=== PATIENT | male | born 1990 | race Two or more races ===

== ENCOUNTER 2020-11-26 00:22 | Inpatient (IN) | payer OTHER ==
[~2020-11-26] VITALS: Ht 182.9 cm; Wt 61.0 kg
[2020-11-26 00:30] VITALS: BP 99/64
[2020-11-26] MEDS ORDERED: HYDROCODONE/ACETAMINOPHEN 10-325 MG TABLET PEG PRN (02:00)
[2020-11-26 04:27] VITALS: BP 93/54
[2020-11-26] MEDS: TraMADol HCL 50 MG TABLET PEG PRN (05:35)
[2020-11-26] MEDS ORDERED: ALBUTEROL SULFATE HFA 90 MCG/PUFF 8 GM INHALER IH PRN (07:15)
[2020-11-26] MEDS ORDERED: MAG HYDROX/AL HYDROX/SIMETH ES 30 ML SUSPENSION UDCUP PO PRN (07:15)
[2020-11-26] MEDS ORDERED: ONDANSETRON HCL 4 MG TABLET PO PRN (07:15)
[2020-11-26] MEDS ORDERED: LOPERAMIDE HCL 2 MG CAPSULE PO PRN (07:15)
[2020-11-26] MEDS ORDERED: PETROLATUM,WHITE 28 GM JELLY TP PRN (07:15)
[2020-11-26] MEDS ORDERED: CloNIDine HCL 0.1 MG TABLET PO PRN (07:15)
[2020-11-26] MEDS ORDERED: DOCUSATE SODIUM 100 MG CAPSULE PO PRN (07:15)
[2020-11-26] MEDS ORDERED: NICOTINE 14 MG/24 HOUR PATCH TD PRN (07:15)
[2020-11-26] MEDS ORDERED: ACETAMINOPHEN 325 MG TABLET PO PRN (07:15)
[2020-11-26] MEDS ORDERED: MAGNESIUM HYDROXIDE SUSPENSION 30 ML UDCUP PO PRN (07:15)
[2020-11-26] MEDS ORDERED: GuaiFENesin/D-METHORPHAN [SUGAR-FREE] 200-20MG/10 ML SYRUP UDCUP PO PRN (07:15)
[2020-11-26] MEDS ORDERED: CloNIDine HCL 0.1 MG TABLET PEG PRN (07:18)
[2020-11-26] MEDS ORDERED: GuaiFENesin/D-METHORPHAN [SUGAR-FREE] 200-20MG/10 ML SYRUP UDCUP PEG PRN (07:19)
[2020-11-26 07:27] VITALS: BP 96/57
[2020-11-26] MEDS ORDERED: ISONIAZID 300 MG TABLET PEG SCH (09:00)
[2020-11-26] MEDS ORDERED: FOLIC ACID 1 MG TABLET PEG SCH (09:00)
[2020-11-26] MEDS ORDERED: MULTIVITAMINS WITH MINERALS, THERAPEUTIC TABLET PEG SCH (09:00)
[2020-11-26] MEDS ORDERED: FAMOTIDINE 20 MG TABLET PEG SCH (09:00)
[2020-11-26] MEDS ORDERED: PYRAZINAMIDE 500 MG TABLET PEG SCH (09:00)
[2020-11-26] MEDS: RIFAMPIN 300 MG CAPSULE PO SCH (09:13)
[2020-11-26] MEDS: DOCUSATE SODIUM 100 MG/10 ML LIQUID UDCUP PEG SCH (09:13)
[2020-11-26] MEDS: MEGESTROL ACETATE 400 MG/10 ML SUSPENSION UDCUP PEG SCH ×2 (09:13→21:35)
[2020-11-26] MEDS: THIAMINE 100 MG TABLET PEG SCH (09:13)
[2020-11-26] MEDS: ETHAMBUTOL HCL 400 MG TABLET PEG SCH (09:14)
[2020-11-26] MEDS: CHOLECALCIFEROL (VIT D3) 1,000 UNITS [25 MCG] TABLET PEG SCH (09:14)
[2020-11-26] MEDS: PYRIDOXINE HCL 50 MG TABLET PEG SCH (09:14)
[2020-11-26] MEDS: ACETAMINOPHEN 325 MG TABLET PEG PRN ×2 (09:15→18:08)
[2020-11-26] MEDS: CYANOCOBALAMIN 500 MCG TABLET PEG SCH (09:16)
[2020-11-26] MEDS ORDERED: DIAZEPAM 10 MG TABLET PO PRN (10:30)
[2020-11-26] MEDS ORDERED: SODIUM CHLORIDE 3% 15 ML NEB SOLUTION NEB ONE (11:30)
[2020-11-26 15:47] LABS: BASOPHILS % (AUTO) 0.4 % (0.0-2.0); EOSINOPHILS % (AUTO) 2.8 % (1.0-6.0); HEMATOCRIT 27.1 % (41-53); HEMOGLOBIN 9.5 g/dL (13.5-17.5); LYMPHOCYTES # (AUTO) 0.8 K/uL (1.0-4.8); LYMPHOCYTES % (AUTO) 35.4 % (22.0-44.0); MEAN CORPUSCULAR HEMOGLOBIN 36.7 pg (26.0-34.0); MEAN CORPUSCULAR VOLUME 105 fL (80-100); MONOCYTES # (AUTO) 0.2 K/uL (0.1-1.0); MONOCYTES % (AUTO) 6.8 % (2.0-9.0); NEUTROPHILS # (AUTO) 1.3 K/uL (1.8-7.7); NEUTROPHILS % (AUTO) 54.6 % (40.0-70.0); RED BLOOD CELL COUNT(AUTO) 2.58 MIL/uL (4.50-5.90); RED CELL DISTRIBUTION WIDTH 14.3 % (11.5-14.5)
[2020-11-26] MEDS: HEPARIN SODIUM,PORCINE 5,000 UNITS/ML VIAL SQ SCH (16:00)
[2020-11-26 16:27] LABS: PLATELET COUNT (AUTO) 56 K/uL (150-450)
[2020-11-26 16:31] LABS: ALANINE AMINOTRANSFERASE 22 U/L (12-78); ALBUMIN 3.2 g/dL (3.4-5.0); ALKALINE PHOSPHATASE 89 U/L (46-116); ANION GAP 7 mmol/L (8-16); ASPARTATE AMINOTRANSFERASE 13 U/L (15-37); BILIRUBIN,TOTAL 0.2 mg/dL (0.1-1.0); CALCIUM, TOTAL 8.5 mg/dL (8.8-10.5); CARBON DIOXIDE 25 mmol/L (22-29); CHLORIDE 104 mmol/L (98-107); CREATININE 0.86 mg/dL (0.60-1.30); GLOMERULAR FILTR. RATE CALC > 60 mL/min (>60); GLUCOSE,RANDOM 123 mg/dL (70-110); PHOSPHORUS 3.6 mg/dL (2.5-4.9); SODIUM SERUM 136 mmol/L (136-145); TOTAL PROTEIN, SERUM 6.9 g/dL (6.4-8.2); UREA NITROGEN, BLOOD 16 mg/dL (7-18)
[2020-11-26 16:37] LABS: APPEARANCE,URINE CLEAR (CLEAR); BILIRUBIN,URINE NEGATIVE (NEGATIVE); GLUCOSE, URINE (UA) NEGATIVE (NEGATIVE); KETONES,URINE NEGATIVE (NEGATIVE); LEUKOCYTE ESTERASE ,URINE NEGATIVE (NEGATIVE); NITRATE,URINE NEGATIVE (NEGATIVE); OCCULT BLOOD,URINE NEGATIVE (NEGATIVE); PH,URINE 5.5 (5.0-8.0); PROTEIN,URINE NEGATIVE (NEGATIVE); UROBILINOGEN,URINE 0.2 mg/dL (<=1.0)
[2020-11-26 17:09] LABS: AMPHET/METH SCREEN,URINE NEGATIVE (NEGATIVE); BARBITURATE SCREEN, URINE NEGATIVE (NEGATIVE); BENZODIAZEPINES SCREEN,URINE NEGATIVE (NEGATIVE); COCAINE SCREEN,URINE NEGATIVE (NEGATIVE); METHADONE SCREEN, URINE NEGATIVE (NEGATIVE); OPIATE SCREEN,URINE POSITIVE (NEGATIVE)
[2020-11-26 17:10] LABS: PHENCYCLIDINE SCREEN,URINE NEGATIVE (NEGATIVE)
[2020-11-26 17:32] LABS: CANNABINOID SCREEN,URINE NEGATIVE (NEGATIVE)
[2020-11-26 19:46] VITALS: BP 93/59
[2020-11-26] MEDS: MIRTAZAPINE 15 MG TABLET PO SCH (21:35)
[2020-11-26 23:56] VITALS: BP 93/52
[2020-11-27 03:50] VITALS: BP 109/66
[2020-11-27 06:53] LABS: BASOPHILS % (AUTO) 0.3 % (0.0-2.0); EOSINOPHILS % (AUTO) 2.8 % (1.0-6.0); HEMATOCRIT 28.2 % (41-53); HEMOGLOBIN 9.9 g/dL (13.5-17.5); LYMPHOCYTES # (AUTO) 1.1 K/uL (1.0-4.8); LYMPHOCYTES % (AUTO) 46.2 % (22.0-44.0); MEAN CORPUSCULAR HEMOGLOBIN 36.8 pg (26.0-34.0); MEAN CORPUSCULAR HGB CONC 35.3 G/dL (31.0-37.0); MEAN CORPUSCULAR VOLUME 104 fL (80-100); MONOCYTES # (AUTO) 0.2 K/uL (0.1-1.0); MONOCYTES % (AUTO) 7.4 % (2.0-9.0); NEUTROPHILS % (AUTO) 43.3 % (40.0-70.0); PLATELET COUNT (AUTO) 65 K/uL (150-450); RED CELL DISTRIBUTION WIDTH 14.2 % (11.5-14.5)
[2020-11-27] MEDS ORDERED: DIAZEPAM 10 MG TABLET PO PRN (07:00)
[2020-11-27 07:24] LABS: ALANINE AMINOTRANSFERASE 23 U/L (12-78); ALBUMIN 3.3 g/dL (3.4-5.0); ALKALINE PHOSPHATASE 93 U/L (46-116); ANION GAP 7 mmol/L (8-16); ASPARTATE AMINOTRANSFERASE 16 U/L (15-37); BILIRUBIN,TOTAL 0.1 mg/dL (0.1-1.0); CALCIUM, TOTAL 8.9 mg/dL (8.8-10.5); CARBON DIOXIDE 27 mmol/L (22-29); CHLORIDE 105 mmol/L (98-107); CHOL/HDL RATIO 2.9 (4.2-7.3); CHOLESTEROL 168 mg/dL (131-200); GLOMERULAR FILTR. RATE CALC > 60 mL/min (>60); GLUCOSE,RANDOM 99 mg/dL (70-110); HDL CHOLESTEROL 58 mg/dL (40-60); LDL CHOL (CALC.) 100 mg/dL (0-130); POTASSIUM 3.7 mmol/L (3.5-5.1); SODIUM SERUM 139 mmol/L (136-145); TOTAL PROTEIN, SERUM 7.1 g/dL (6.4-8.2); TRIGLYCERIDES 48 mg/dL (15-150); UREA NITROGEN, BLOOD 17 mg/dL (7-18)
[2020-11-27 07:41] VITALS: BP 100/57
[2020-11-27 08:02] LABS: HEMOGLOBIN A1C 4.6 % (3.8-5.6)
[2020-11-27] MEDS: DOCUSATE SODIUM 100 MG/10 ML LIQUID UDCUP PEG SCH (08:40)
[2020-11-27] MEDS: MEGESTROL ACETATE 400 MG/10 ML SUSPENSION UDCUP PEG SCH ×2 (08:40→20:41)
[2020-11-27] MEDS: PYRAZINAMIDE 500 MG TABLET PEG SCH (08:41)
[2020-11-27] MEDS: ETHAMBUTOL HCL 400 MG TABLET PEG SCH (08:42)
[2020-11-27] MEDS: DIAZEPAM 10 MG TABLET PO SCH ×4 (08:43→20:41)
[2020-11-27] MEDS: PYRIDOXINE HCL 50 MG TABLET PEG SCH (08:44)
[2020-11-27] MEDS: CHOLECALCIFEROL (VIT D3) 1,000 UNITS [25 MCG] TABLET PEG SCH (08:45)
[2020-11-27] MEDS: MULTIVITAMINS WITH MINERALS, THERAPEUTIC TABLET PO SCH (08:45)
[2020-11-27] MEDS: THIAMINE 100 MG TABLET PEG SCH (08:45)
[2020-11-27] MEDS: CYANOCOBALAMIN 500 MCG TABLET PEG SCH (08:46)
[2020-11-27] MEDS: RIFAMPIN 300 MG CAPSULE PO SCH (08:46)
[2020-11-27] MEDS: HEPARIN SODIUM,PORCINE 5,000 UNITS/ML VIAL SQ SCH ×4 (08:46→23:44)
[2020-11-27] MEDS: TraMADol HCL 50 MG TABLET PEG PRN ×2 (08:47→15:11)
[2020-11-27] MEDS ORDERED: ISONIAZID 300 MG TABLET PEG SCH (09:00)
[2020-11-27 15:05] VITALS: BP 102/61
[2020-11-27 20:20] VITALS: BP 119/76
[2020-11-27] MEDS: MIRTAZAPINE 15 MG TABLET PO SCH (20:41)
[2020-11-27] MEDS: ACETAMINOPHEN 325 MG TABLET PEG PRN (20:50)
[2020-11-28 03:45] VITALS: BP 96/52
[2020-11-28] MEDS: TraMADol HCL 50 MG TABLET PEG PRN ×2 (04:12→12:12)
[2020-11-28 07:21] VITALS: BP 101/60
[2020-11-28] MEDS: HEPARIN SODIUM,PORCINE 5,000 UNITS/ML VIAL SQ SCH ×2 (08:31→15:01)
[2020-11-28] MEDS: CYANOCOBALAMIN 500 MCG TABLET PEG SCH (08:33)
[2020-11-28] MEDS: DIAZEPAM 10 MG TABLET PO SCH ×4 (08:33→20:18)
[2020-11-28] MEDS: THIAMINE 100 MG TABLET PEG SCH (08:33)
[2020-11-28] MEDS: ISONIAZID 300 MG TABLET PEG SCH (08:33)
[2020-11-28] MEDS: RIFAMPIN 300 MG CAPSULE PO SCH (08:33)
[2020-11-28] MEDS: MULTIVITAMINS WITH MINERALS, THERAPEUTIC TABLET PO SCH (08:33)
[2020-11-28] MEDS: MEGESTROL ACETATE 400 MG/10 ML SUSPENSION UDCUP PEG SCH ×2 (08:33→20:19)
[2020-11-28] MEDS: DOCUSATE SODIUM 100 MG/10 ML LIQUID UDCUP PEG SCH (08:33)
[2020-11-28] MEDS: PYRIDOXINE HCL 50 MG TABLET PEG SCH (08:34)
[2020-11-28] MEDS: PYRAZINAMIDE 500 MG TABLET PEG SCH (08:34)
[2020-11-28] MEDS: ETHAMBUTOL HCL 400 MG TABLET PEG SCH (08:34)
[2020-11-28] MEDS: CHOLECALCIFEROL (VIT D3) 1,000 UNITS [25 MCG] TABLET PEG SCH (08:34)
[2020-11-28 15:47] VITALS: BP 98/68
[2020-11-28 19:34] VITALS: BP 98/66
[2020-11-28] MEDS: MIRTAZAPINE 15 MG TABLET PO SCH (20:19)
[2020-11-28] MEDS: ACETAMINOPHEN 325 MG TABLET PEG PRN (20:26)
[2020-11-29] MEDS: HEPARIN SODIUM,PORCINE 5,000 UNITS/ML VIAL SQ SCH ×3 (01:01→15:48)
[2020-11-29] MEDS: TraMADol HCL 50 MG TABLET PEG PRN ×3 (01:06→21:26)
[2020-11-29 04:12] VITALS: BP 100/67
[2020-11-29] MEDS ORDERED: DIAZEPAM 5 MG TABLET PO PRN (07:00)
[2020-11-29 07:33] VITALS: BP 101/67
[2020-11-29] MEDS: DOCUSATE SODIUM 100 MG/10 ML LIQUID UDCUP PEG SCH (08:55)
[2020-11-29] MEDS: MEGESTROL ACETATE 400 MG/10 ML SUSPENSION UDCUP PEG SCH ×2 (08:55→20:32)
[2020-11-29] MEDS: CYANOCOBALAMIN 500 MCG TABLET PEG SCH (08:56)
[2020-11-29] MEDS: PYRAZINAMIDE 500 MG TABLET PEG SCH (08:56)
[2020-11-29] MEDS: ISONIAZID 300 MG TABLET PEG SCH (08:56)
[2020-11-29] MEDS: ETHAMBUTOL HCL 400 MG TABLET PEG SCH (08:56)
[2020-11-29] MEDS: RIFAMPIN 300 MG CAPSULE PO SCH (08:56)
[2020-11-29] MEDS: CHOLECALCIFEROL (VIT D3) 1,000 UNITS [25 MCG] TABLET PEG SCH (08:57)
[2020-11-29] MEDS: DIAZEPAM 5 MG TABLET PO SCH ×4 (08:57→21:28)
[2020-11-29] MEDS: PYRIDOXINE HCL 50 MG TABLET PEG SCH (08:57)
[2020-11-29] MEDS: THIAMINE 100 MG TABLET PEG SCH (08:57)
[2020-11-29] MEDS: MULTIVITAMINS WITH MINERALS, THERAPEUTIC TABLET PO SCH (08:57)
[2020-11-29 15:01] VITALS: BP 104/68
[2020-11-29 20:23] VITALS: BP_SYST 100; BP_SYST 97; BP_DIAS 61
[2020-11-29] MEDS: MIRTAZAPINE 15 MG TABLET PO SCH (20:32)
[2020-11-30] MEDS: HEPARIN SODIUM,PORCINE 5,000 UNITS/ML VIAL SQ SCH ×4 (00:06→23:55)
[2020-11-30 05:43] VITALS: BP 95/54
[2020-11-30] MEDS ORDERED: DIAZEPAM 5 MG TABLET PO PRN (07:00)
[2020-11-30 08:07] VITALS: BP 97/62
[2020-11-30] MEDS: CHOLECALCIFEROL (VIT D3) 1,000 UNITS [25 MCG] TABLET PEG SCH (08:38)
[2020-11-30] MEDS: RIFAMPIN 300 MG CAPSULE PO SCH (08:38)
[2020-11-30] MEDS: MEGESTROL ACETATE 400 MG/10 ML SUSPENSION UDCUP PEG SCH ×2 (08:38→21:21)
[2020-11-30] MEDS: PYRAZINAMIDE 500 MG TABLET PEG SCH (08:38)
[2020-11-30] MEDS: DOCUSATE SODIUM 100 MG/10 ML LIQUID UDCUP PEG SCH (08:39)
[2020-11-30] MEDS: ETHAMBUTOL HCL 400 MG TABLET PEG SCH (08:39)
[2020-11-30] MEDS: ISONIAZID 300 MG TABLET PEG SCH (08:40)
[2020-11-30] MEDS: MULTIVITAMINS WITH MINERALS, THERAPEUTIC TABLET PO SCH (08:45)
[2020-11-30] MEDS: THIAMINE 100 MG TABLET PEG SCH (08:45)
[2020-11-30] MEDS: CYANOCOBALAMIN 500 MCG TABLET PEG SCH (11:24)
[2020-11-30] MEDS: PYRIDOXINE HCL 50 MG TABLET PEG SCH (11:25)
[2020-11-30] MEDS: ACETAMINOPHEN 325 MG TABLET PEG PRN (11:25)
[2020-11-30] MEDS: TraMADol HCL 50 MG TABLET PEG PRN (16:59)
[2020-11-30 17:07] VITALS: BP 108/69
[2020-11-30 20:25] VITALS: BP 95/59
[2020-11-30] MEDS: MIRTAZAPINE 15 MG TABLET PO SCH (21:21)
[2020-12-01 05:47] VITALS: BP 102/60
[2020-12-01 07:53] VITALS: BP 100/55
[2020-12-01] MEDS: CHOLECALCIFEROL (VIT D3) 1,000 UNITS [25 MCG] TABLET PEG SCH (08:23)
[2020-12-01] MEDS: MULTIVITAMINS WITH MINERALS, THERAPEUTIC TABLET PO SCH (08:23)
[2020-12-01] MEDS: THIAMINE 100 MG TABLET PEG SCH (08:23)
[2020-12-01] MEDS: MEGESTROL ACETATE 400 MG/10 ML SUSPENSION UDCUP PEG SCH ×2 (08:23→21:03)
[2020-12-01] MEDS: DOCUSATE SODIUM 100 MG/10 ML LIQUID UDCUP PEG SCH (08:23)
[2020-12-01] MEDS: PYRIDOXINE HCL 50 MG TABLET PEG SCH (08:23)
[2020-12-01] MEDS: RIFAMPIN 300 MG CAPSULE PO SCH (08:24)
[2020-12-01] MEDS: HEPARIN SODIUM,PORCINE 5,000 UNITS/ML VIAL SQ SCH ×3 (08:24→23:10)
[2020-12-01] MEDS: PYRAZINAMIDE 500 MG TABLET PEG SCH (08:24)
[2020-12-01] MEDS: ISONIAZID 300 MG TABLET PEG SCH (08:24)
[2020-12-01] MEDS: ETHAMBUTOL HCL 400 MG TABLET PEG SCH (08:24)
[2020-12-01] MEDS: CYANOCOBALAMIN 500 MCG TABLET PEG SCH (08:24)
[2020-12-01] MEDS ORDERED: HALOPERIDOL DECANOATE 100 MG/ML VIAL IM ONE (12:00)
[2020-12-01] MEDS: TraMADol HCL 50 MG TABLET PEG PRN (13:31)
[2020-12-01] MEDS: ACETAMINOPHEN 325 MG TABLET PEG PRN ×2 (15:27→23:10)
[2020-12-01] MEDS: QUEtiapine FUMARATE 25 MG TABLET PEG PRN (15:58)
[2020-12-01] MEDS: MIRTAZAPINE 15 MG TABLET PO SCH (21:03)
[2020-12-01 21:10] VITALS: BP 103/72
[2020-12-02 08:27] VITALS: BP 102/64
[2020-12-02] MEDS: HEPARIN SODIUM,PORCINE 5,000 UNITS/ML VIAL SQ SCH ×2 (09:25→16:38)
[2020-12-02] MEDS: THIAMINE 100 MG TABLET PEG SCH (09:26)
[2020-12-02] MEDS: PYRAZINAMIDE 500 MG TABLET PEG SCH (09:27)
[2020-12-02] MEDS: PYRIDOXINE HCL 50 MG TABLET PEG SCH (09:27)
[2020-12-02] MEDS: MULTIVITAMINS WITH MINERALS, THERAPEUTIC TABLET PO SCH (09:27)
[2020-12-02] MEDS: ISONIAZID 300 MG TABLET PEG SCH (09:27)
[2020-12-02] MEDS: ETHAMBUTOL HCL 400 MG TABLET PEG SCH (09:28)
[2020-12-02] MEDS: DOCUSATE SODIUM 100 MG/10 ML LIQUID UDCUP PEG SCH (09:29)
[2020-12-02] MEDS: CHOLECALCIFEROL (VIT D3) 1,000 UNITS [25 MCG] TABLET PEG SCH (09:29)
[2020-12-02] MEDS: MEGESTROL ACETATE 400 MG/10 ML SUSPENSION UDCUP PEG SCH ×2 (09:29→21:26)
[2020-12-02] MEDS: RIFAMPIN 300 MG CAPSULE PO SCH (09:29)
[2020-12-02] MEDS: HALOPERIDOL DECANOATE 100 MG/ML VIAL IM ONE ×2 (12:45→13:24)
[2020-12-02] MEDS: CYANOCOBALAMIN 500 MCG TABLET PEG SCH (13:24)
[2020-12-02] MEDS: TraMADol HCL 50 MG TABLET PEG PRN (13:24)
[2020-12-02] MEDS: ACETAMINOPHEN 325 MG TABLET PEG PRN (19:50)
[2020-12-02 20:10] VITALS: BP 104/74
[2020-12-02] MEDS: MIRTAZAPINE 15 MG TABLET PO SCH (21:26)
[2020-12-03] MEDS: HEPARIN SODIUM,PORCINE 5,000 UNITS/ML VIAL SQ SCH ×3 (00:12→16:27)
[2020-12-03 04:18] VITALS: BP 98/61
[2020-12-03] MEDS: TraMADol HCL 50 MG TABLET PEG PRN ×3 (04:18→20:30)
[2020-12-03 07:41] LABS: BASOPHILS % (AUTO) 0.4 % (0.0-2.0); EOSINOPHILS % (AUTO) 2.6 % (1.0-6.0); HEMATOCRIT 29.3 % (41-53); LYMPHOCYTES % (AUTO) 39.5 % (22.0-44.0); MEAN CORPUSCULAR HEMOGLOBIN 37.1 pg (26.0-34.0); MEAN CORPUSCULAR HGB CONC 34.1 G/dL (31.0-37.0); MEAN CORPUSCULAR VOLUME 109 fL (80-100); MONOCYTES # (AUTO) 0.2 K/uL (0.1-1.0); MONOCYTES % (AUTO) 7.2 % (2.0-9.0); NEUTROPHILS # (AUTO) 1.3 K/uL (1.8-7.7); NEUTROPHILS % (AUTO) 50.3 % (40.0-70.0); RED BLOOD CELL COUNT(AUTO) 2.69 MIL/uL (4.50-5.90); RED CELL DISTRIBUTION WIDTH 15.5 % (11.5-14.5)
[2020-12-03 07:51] VITALS: BP 98/59
[2020-12-03] MEDS: PYRIDOXINE HCL 50 MG TABLET PEG SCH (08:07)
[2020-12-03] MEDS: DOCUSATE SODIUM 100 MG/10 ML LIQUID UDCUP PEG SCH (08:07)
[2020-12-03] MEDS: MEGESTROL ACETATE 400 MG/10 ML SUSPENSION UDCUP PEG SCH ×4 (08:07→21:00)
[2020-12-03] MEDS: RIFAMPIN 300 MG CAPSULE PO SCH (08:07)
[2020-12-03] MEDS: MULTIVITAMINS WITH MINERALS, THERAPEUTIC TABLET PO SCH (08:07)
[2020-12-03] MEDS: CYANOCOBALAMIN 500 MCG TABLET PEG SCH (08:07)
[2020-12-03] MEDS: CHOLECALCIFEROL (VIT D3) 1,000 UNITS [25 MCG] TABLET PEG SCH (08:07)
[2020-12-03] MEDS: ETHAMBUTOL HCL 400 MG TABLET PEG SCH (08:07)
[2020-12-03] MEDS: THIAMINE 100 MG TABLET PEG SCH (08:07)
[2020-12-03] MEDS: ISONIAZID 300 MG TABLET PEG SCH (08:07)
[2020-12-03] MEDS: PYRAZINAMIDE 500 MG TABLET PEG SCH (08:08)
[2020-12-03 08:18] LABS: ALANINE AMINOTRANSFERASE 73 U/L (12-78); ALBUMIN 3.4 g/dL (3.4-5.0); ALKALINE PHOSPHATASE 101 U/L (46-116); ANION GAP 12 mmol/L (8-16); ASPARTATE AMINOTRANSFERASE 54 U/L (15-37); BILIRUBIN,TOTAL 0.1 mg/dL (0.1-1.0); CALCIUM, TOTAL 9.2 mg/dL (8.8-10.5); CARBON DIOXIDE 23 mmol/L (22-29); CHLORIDE 105 mmol/L (98-107); GLUCOSE,RANDOM 86 mg/dL (70-110); POTASSIUM 3.9 mmol/L (3.5-5.1); SODIUM SERUM 140 mmol/L (136-145); TOTAL PROTEIN, SERUM 7.1 g/dL (6.4-8.2); UREA NITROGEN, BLOOD 18 mg/dL (7-18)
[2020-12-03 08:27] LABS: CREATININE 0.75 mg/dL (0.60-1.30); GLOMERULAR FILTR. RATE CALC > 60 mL/min (>60)
[2020-12-03 11:25] LABS: PLATELET COUNT (AUTO) 61 K/uL (150-450)
[2020-12-03] MEDS: QUEtiapine FUMARATE 25 MG TABLET PEG PRN ×3 (14:48→20:32)
[2020-12-03] MEDS: MIRTAZAPINE 15 MG TABLET PO SCH ×2 (19:42→20:30)
[2020-12-03 20:16] VITALS: BP 112/56
[2020-12-04 04:54] VITALS: BP 97/65
[2020-12-04] MEDS: ISONIAZID 300 MG TABLET PEG SCH ×2 (08:15→09:40)
[2020-12-04] MEDS: PYRAZINAMIDE 500 MG TABLET PEG SCH ×2 (08:15→09:41)
[2020-12-04] MEDS: ETHAMBUTOL HCL 400 MG TABLET PEG SCH ×2 (08:15→09:41)
[2020-12-04] MEDS: CYANOCOBALAMIN 500 MCG TABLET PEG SCH ×2 (08:15→09:42)
[2020-12-04] MEDS: DOCUSATE SODIUM 100 MG/10 ML LIQUID UDCUP PEG SCH ×2 (08:15→09:40)
[2020-12-04] MEDS: TraMADol HCL 50 MG TABLET PEG PRN ×3 (08:15→16:32)
[2020-12-04] MEDS: RIFAMPIN 300 MG CAPSULE PO SCH ×2 (08:15→09:42)
[2020-12-04] MEDS: MEGESTROL ACETATE 400 MG/10 ML SUSPENSION UDCUP PEG SCH ×3 (08:15→20:53)
[2020-12-04] MEDS: MULTIVITAMINS WITH MINERALS, THERAPEUTIC TABLET PO SCH ×2 (08:16→09:42)
[2020-12-04] MEDS: CHOLECALCIFEROL (VIT D3) 1,000 UNITS [25 MCG] TABLET PEG SCH ×2 (08:16→09:42)
[2020-12-04] MEDS: THIAMINE 100 MG TABLET PEG SCH ×2 (08:16→09:42)
[2020-12-04] MEDS: PYRIDOXINE HCL 50 MG TABLET PEG SCH ×2 (08:16→09:42)
[2020-12-04] MEDS: HEPARIN SODIUM,PORCINE 5,000 UNITS/ML VIAL SQ SCH ×4 (08:17→16:19)
[2020-12-04 08:19] VITALS: BP 89/49
[2020-12-04 20:30] VITALS: BP 101/64
[2020-12-04] MEDS: MIRTAZAPINE 15 MG TABLET PO SCH (20:53)
[2020-12-05] MEDS: QUEtiapine FUMARATE 25 MG TABLET PEG PRN ×3 (00:23→23:46)
[2020-12-05] MEDS: HEPARIN SODIUM,PORCINE 5,000 UNITS/ML VIAL SQ SCH ×4 (00:23→23:46)
[2020-12-05 05:05] VITALS: BP 103/63
[2020-12-05 07:57] VITALS: BP 97/66
[2020-12-05] MEDS: ETHAMBUTOL HCL 400 MG TABLET PEG SCH (08:01)
[2020-12-05] MEDS: CYANOCOBALAMIN 500 MCG TABLET PEG SCH (08:02)
[2020-12-05] MEDS: DOCUSATE SODIUM 100 MG/10 ML LIQUID UDCUP PEG SCH (08:02)
[2020-12-05] MEDS: MEGESTROL ACETATE 400 MG/10 ML SUSPENSION UDCUP PEG SCH ×2 (08:02→20:46)
[2020-12-05] MEDS: ISONIAZID 300 MG TABLET PEG SCH (08:02)
[2020-12-05] MEDS: RIFAMPIN 300 MG CAPSULE PO SCH (08:02)
[2020-12-05] MEDS: PYRAZINAMIDE 500 MG TABLET PEG SCH (08:02)
[2020-12-05] MEDS: THIAMINE 100 MG TABLET PEG SCH (08:03)
[2020-12-05] MEDS: PYRIDOXINE HCL 50 MG TABLET PEG SCH (08:03)
[2020-12-05] MEDS: CHOLECALCIFEROL (VIT D3) 1,000 UNITS [25 MCG] TABLET PEG SCH (08:03)
[2020-12-05] MEDS: MULTIVITAMINS WITH MINERALS, THERAPEUTIC TABLET PO SCH (08:03)
[2020-12-05 09:05] LABS: BASOPHILS % (AUTO) 0.4 % (0.0-2.0); EOSINOPHILS % (AUTO) 2.6 % (1.0-6.0); HEMATOCRIT 29.6 % (41-53); LYMPHOCYTES # (AUTO) 0.9 K/uL (1.0-4.8); LYMPHOCYTES % (AUTO) 35.1 % (22.0-44.0); MEAN CORPUSCULAR HEMOGLOBIN 36.9 pg (26.0-34.0); MEAN CORPUSCULAR HGB CONC 33.7 G/dL (31.0-37.0); MEAN CORPUSCULAR VOLUME 109 fL (80-100); MONOCYTES # (AUTO) 0.2 K/uL (0.1-1.0); MONOCYTES % (AUTO) 9.9 % (2.0-9.0); NEUTROPHILS # (AUTO) 1.3 K/uL (1.8-7.7); RED BLOOD CELL COUNT(AUTO) 2.71 MIL/uL (4.50-5.90); RED CELL DISTRIBUTION WIDTH 16.3 % (11.5-14.5)
[2020-12-05 09:18] LABS: ALANINE AMINOTRANSFERASE 152 U/L (12-78); ALBUMIN 3.4 g/dL (3.4-5.0); ALKALINE PHOSPHATASE 97 U/L (46-116); ANION GAP 14 mmol/L (8-16); ASPARTATE AMINOTRANSFERASE 99 U/L (15-37); BILIRUBIN,TOTAL 0.2 mg/dL (0.1-1.0); CALCIUM, TOTAL 9.1 mg/dL (8.8-10.5); CARBON DIOXIDE 22 mmol/L (22-29); CHLORIDE 103 mmol/L (98-107); CREATININE 0.65 mg/dL (0.60-1.30); GLOMERULAR FILTR. RATE CALC > 60 mL/min (>60); GLUCOSE,RANDOM 80 mg/dL (70-110); POTASSIUM 3.7 mmol/L (3.5-5.1); SODIUM SERUM 139 mmol/L (136-145); TOTAL PROTEIN, SERUM 7.2 g/dL (6.4-8.2); UREA NITROGEN, BLOOD 22 mg/dL (7-18)
[2020-12-05 10:03] LABS: PLATELET COUNT (AUTO) 63 K/uL (150-450)
[2020-12-05] MEDS: TraMADol HCL 50 MG TABLET PEG PRN ×2 (13:37→23:49)
[2020-12-05 19:50] VITALS: BP 106/71
[2020-12-05] MEDS: MIRTAZAPINE 15 MG TABLET PO SCH (20:46)
[2020-12-06 04:49] VITALS: BP 99/64
[2020-12-06 07:59] LABS: BASOPHILS % (AUTO) 0.3 % (0.0-2.0); EOSINOPHILS % (AUTO) 3.2 % (1.0-6.0); HEMATOCRIT 29.4 % (41-53); HEMOGLOBIN 10.1 g/dL (13.5-17.5); LYMPHOCYTES % (AUTO) 41.6 % (22.0-44.0); MEAN CORPUSCULAR HGB CONC 34.2 G/dL (31.0-37.0); MEAN CORPUSCULAR VOLUME 108 fL (80-100); MONOCYTES # (AUTO) 0.2 K/uL (0.1-1.0); MONOCYTES % (AUTO) 9.2 % (2.0-9.0); NEUTROPHILS # (AUTO) 1.1 K/uL (1.8-7.7); NEUTROPHILS % (AUTO) 45.7 % (40.0-70.0); PLATELET COUNT (AUTO) 60 K/uL (150-450); RED BLOOD CELL COUNT(AUTO) 2.72 MIL/uL (4.50-5.90); RED CELL DISTRIBUTION WIDTH 16.1 % (11.5-14.5)
[2020-12-06 08:35] LABS: ALANINE AMINOTRANSFERASE 167 U/L (12-78); ALBUMIN 3.5 g/dL (3.4-5.0); ALKALINE PHOSPHATASE 90 U/L (46-116); ANION GAP 12 mmol/L (8-16); ASPARTATE AMINOTRANSFERASE 86 U/L (15-37); BILIRUBIN,TOTAL 0.1 mg/dL (0.1-1.0); CALCIUM, TOTAL 9.2 mg/dL (8.8-10.5); CARBON DIOXIDE 23 mmol/L (22-29); CHLORIDE 103 mmol/L (98-107); CREATININE 0.74 mg/dL (0.60-1.30); GLOMERULAR FILTR. RATE CALC > 60 mL/min (>60); GLUCOSE,RANDOM 86 mg/dL (70-110); POTASSIUM 3.9 mmol/L (3.5-5.1); SODIUM SERUM 138 mmol/L (136-145); TOTAL PROTEIN, SERUM 7.5 g/dL (6.4-8.2); UREA NITROGEN, BLOOD 21 mg/dL (7-18)
[2020-12-06 08:41] VITALS: BP 101/57
[2020-12-06] MEDS: CYANOCOBALAMIN 500 MCG TABLET PEG SCH (09:17)
[2020-12-06] MEDS: THIAMINE 100 MG TABLET PEG SCH (09:17)
[2020-12-06] MEDS: ISONIAZID 300 MG TABLET PEG SCH (09:19)
[2020-12-06] MEDS: RIFAMPIN 300 MG CAPSULE PO SCH (09:19)
[2020-12-06] MEDS: PYRAZINAMIDE 500 MG TABLET PEG SCH (09:20)
[2020-12-06] MEDS: ETHAMBUTOL HCL 400 MG TABLET PEG SCH (09:20)
[2020-12-06] MEDS: MEGESTROL ACETATE 400 MG/10 ML SUSPENSION UDCUP PEG SCH ×2 (09:21→20:14)
[2020-12-06] MEDS: DOCUSATE SODIUM 100 MG/10 ML LIQUID UDCUP PEG SCH (09:21)
[2020-12-06] MEDS: HEPARIN SODIUM,PORCINE 5,000 UNITS/ML VIAL SQ SCH ×3 (09:21→23:25)
[2020-12-06] MEDS: PYRIDOXINE HCL 50 MG TABLET PEG SCH (09:22)
[2020-12-06] MEDS: CHOLECALCIFEROL (VIT D3) 1,000 UNITS [25 MCG] TABLET PEG SCH (09:22)
[2020-12-06] MEDS: TraMADol HCL 50 MG TABLET PEG PRN ×2 (09:23→20:14)
[2020-12-06] MEDS: MULTIVITAMINS WITH MINERALS, THERAPEUTIC TABLET PO SCH (09:52)
[2020-12-06] MEDS ORDERED: HALOPERIDOL DECANOATE 100 MG/ML VIAL IM ONE (17:00)
[2020-12-06] MEDS: QUEtiapine FUMARATE 25 MG TABLET PEG PRN (18:14)
[2020-12-06] MEDS: ACETAMINOPHEN 325 MG TABLET PEG PRN (18:15)
[2020-12-06] MEDS: MIRTAZAPINE 15 MG TABLET PO SCH (20:14)
[2020-12-06 20:28] VITALS: BP 107/66
[2020-12-07 04:55] VITALS: BP 96/54
[2020-12-07 06:51] LABS: BASOPHILS % (AUTO) 0.2 % (0.0-2.0); HEMATOCRIT 29.4 % (41-53); LYMPHOCYTES % (AUTO) 47.4 % (22.0-44.0); MEAN CORPUSCULAR HEMOGLOBIN 36.8 pg (26.0-34.0); MEAN CORPUSCULAR HGB CONC 34.2 G/dL (31.0-37.0); MEAN CORPUSCULAR VOLUME 108 fL (80-100); MONOCYTES # (AUTO) 0.2 K/uL (0.1-1.0); MONOCYTES % (AUTO) 9.9 % (2.0-9.0); NEUTROPHILS # (AUTO) 0.8 K/uL (1.8-7.7); NEUTROPHILS % (AUTO) 39.5 % (40.0-70.0); PLATELET COUNT (AUTO) 65 K/uL (150-450); RED BLOOD CELL COUNT(AUTO) 2.73 MIL/uL (4.50-5.90); RED CELL DISTRIBUTION WIDTH 15.1 % (11.5-14.5)
[2020-12-07 07:22] VITALS: BP 101/72
[2020-12-07 08:02] LABS: ALANINE AMINOTRANSFERASE 168 U/L (12-78); ALBUMIN 3.5 g/dL (3.4-5.0); ALKALINE PHOSPHATASE 93 U/L (46-116); ANION GAP 11 mmol/L (8-16); ASPARTATE AMINOTRANSFERASE 77 U/L (15-37); BILIRUBIN,TOTAL 0.1 mg/dL (0.1-1.0); CALCIUM, TOTAL 8.8 mg/dL (8.8-10.5); CARBON DIOXIDE 24 mmol/L (22-29); CHLORIDE 103 mmol/L (98-107); CREATININE 0.86 mg/dL (0.60-1.30); GLOMERULAR FILTR. RATE CALC > 60 mL/min (>60); GLUCOSE,RANDOM 97 mg/dL (70-110); POTASSIUM 3.9 mmol/L (3.5-5.1); SODIUM SERUM 138 mmol/L (136-145); TOTAL PROTEIN, SERUM 7.5 g/dL (6.4-8.2); UREA NITROGEN, BLOOD 23 mg/dL (7-18)
[2020-12-07] MEDS: PYRAZINAMIDE 500 MG TABLET PEG SCH (08:33)
[2020-12-07] MEDS: ETHAMBUTOL HCL 400 MG TABLET PEG SCH (08:34)
[2020-12-07] MEDS: CYANOCOBALAMIN 500 MCG TABLET PEG SCH (08:34)
[2020-12-07] MEDS: MULTIVITAMINS WITH MINERALS, THERAPEUTIC TABLET PO SCH (08:34)
[2020-12-07] MEDS: THIAMINE 100 MG TABLET PEG SCH (08:34)
[2020-12-07] MEDS: ISONIAZID 300 MG TABLET PEG SCH (08:34)
[2020-12-07] MEDS: RIFAMPIN 300 MG CAPSULE PO SCH (08:34)
[2020-12-07] MEDS: PYRIDOXINE HCL 50 MG TABLET PEG SCH (08:34)
[2020-12-07] MEDS: CHOLECALCIFEROL (VIT D3) 1,000 UNITS [25 MCG] TABLET PEG SCH (08:34)
[2020-12-07] MEDS: HEPARIN SODIUM,PORCINE 5,000 UNITS/ML VIAL SQ SCH ×3 (08:35→23:30)
[2020-12-07] MEDS: MEGESTROL ACETATE 400 MG/10 ML SUSPENSION UDCUP PEG SCH ×2 (08:35→20:26)
[2020-12-07] MEDS: DOCUSATE SODIUM 100 MG/10 ML LIQUID UDCUP PEG SCH (08:35)
[2020-12-07] MEDS: TraMADol HCL 50 MG TABLET PEG PRN ×2 (14:21→20:27)
[2020-12-07 19:00] VITALS: BP 102/72
[2020-12-07] MEDS: MIRTAZAPINE 15 MG TABLET PO SCH (20:26)
[2020-12-07] MEDS: QUEtiapine FUMARATE 25 MG TABLET PEG PRN (20:27)
[2020-12-08 07:01] LABS: BASOPHILS % (AUTO) 0.4 % (0.0-2.0); EOSINOPHILS % (AUTO) 3.3 % (1.0-6.0); HEMATOCRIT 30.4 % (41-53); HEMOGLOBIN 10.3 g/dL (13.5-17.5); LYMPHOCYTES # (AUTO) 1.1 K/uL (1.0-4.8); MEAN CORPUSCULAR HEMOGLOBIN 36.7 pg (26.0-34.0); MEAN CORPUSCULAR HGB CONC 33.7 G/dL (31.0-37.0); MEAN CORPUSCULAR VOLUME 109 fL (80-100); MONOCYTES # (AUTO) 0.2 K/uL (0.1-1.0); NEUTROPHILS % (AUTO) 40.3 % (40.0-70.0); PLATELET COUNT (AUTO) 64 K/uL (150-450); RED BLOOD CELL COUNT(AUTO) 2.79 MIL/uL (4.50-5.90); RED CELL DISTRIBUTION WIDTH 15.7 % (11.5-14.5)
[2020-12-08 08:02] LABS: ALANINE AMINOTRANSFERASE 157 U/L (12-78); ALBUMIN 3.6 g/dL (3.4-5.0); ALKALINE PHOSPHATASE 88 U/L (46-116); ANION GAP 12 mmol/L (8-16); ASPARTATE AMINOTRANSFERASE 63 U/L (15-37); BILIRUBIN,TOTAL 0.1 mg/dL (0.1-1.0); CALCIUM, TOTAL 9.3 mg/dL (8.8-10.5); CARBON DIOXIDE 23 mmol/L (22-29); CHLORIDE 102 mmol/L (98-107); CREATININE 0.91 mg/dL (0.60-1.30); GLOMERULAR FILTR. RATE CALC > 60 mL/min (>60); GLUCOSE,RANDOM 91 mg/dL (70-110); POTASSIUM 3.8 mmol/L (3.5-5.1); SODIUM SERUM 137 mmol/L (136-145); TOTAL PROTEIN, SERUM 7.4 g/dL (6.4-8.2); UREA NITROGEN, BLOOD 22 mg/dL (7-18)
[2020-12-08] MEDS: PYRAZINAMIDE 500 MG TABLET PEG SCH (08:04)
[2020-12-08] MEDS: PYRIDOXINE HCL 50 MG TABLET PEG SCH (08:04)
[2020-12-08] MEDS: MULTIVITAMINS WITH MINERALS, THERAPEUTIC TABLET PO SCH (08:04)
[2020-12-08] MEDS: ISONIAZID 300 MG TABLET PEG SCH (08:05)
[2020-12-08] MEDS: CHOLECALCIFEROL (VIT D3) 1,000 UNITS [25 MCG] TABLET PEG SCH (08:05)
[2020-12-08] MEDS: RIFAMPIN 300 MG CAPSULE PO SCH (08:05)
[2020-12-08] MEDS: MEGESTROL ACETATE 400 MG/10 ML SUSPENSION UDCUP PEG SCH ×2 (08:05→20:09)
[2020-12-08] MEDS: CYANOCOBALAMIN 500 MCG TABLET PEG SCH (08:05)
[2020-12-08] MEDS: THIAMINE 100 MG TABLET PEG SCH (08:05)
[2020-12-08] MEDS: DOCUSATE SODIUM 100 MG/10 ML LIQUID UDCUP PEG SCH (08:05)
[2020-12-08] MEDS: HEPARIN SODIUM,PORCINE 5,000 UNITS/ML VIAL SQ SCH ×2 (08:05→15:09)
[2020-12-08] MEDS: ETHAMBUTOL HCL 400 MG TABLET PEG SCH (08:06)
[2020-12-08 08:36] VITALS: BP 98/63
[2020-12-08] MEDS: TraMADol HCL 50 MG TABLET PEG PRN ×2 (15:08→20:18)
[2020-12-08] MEDS: MIRTAZAPINE 15 MG TABLET PO SCH (20:09)
[2020-12-08 20:36] VITALS: BP 102/56
[2020-12-09] MEDS: HEPARIN SODIUM,PORCINE 5,000 UNITS/ML VIAL SQ SCH ×3 (00:52→16:13)
[2020-12-09 04:00] VITALS: BP 103/65
[2020-12-09] MEDS: TraMADol HCL 50 MG TABLET PEG PRN ×3 (04:38→20:58)
[2020-12-09] MEDS: QUEtiapine FUMARATE 25 MG TABLET PEG PRN ×2 (04:41→20:58)
[2020-12-09 08:14] VITALS: BP 94/51
[2020-12-09] MEDS: MULTIVITAMINS WITH MINERALS, THERAPEUTIC TABLET PO SCH (09:23)
[2020-12-09] MEDS: CHOLECALCIFEROL (VIT D3) 1,000 UNITS [25 MCG] TABLET PEG SCH (09:23)
[2020-12-09] MEDS: THIAMINE 100 MG TABLET PEG SCH (09:23)
[2020-12-09] MEDS: PYRIDOXINE HCL 50 MG TABLET PEG SCH (09:23)
[2020-12-09] MEDS: PYRAZINAMIDE 500 MG TABLET PEG SCH (09:24)
[2020-12-09] MEDS: CYANOCOBALAMIN 500 MCG TABLET PEG SCH (09:24)
[2020-12-09] MEDS: RIFAMPIN 300 MG CAPSULE PO SCH (09:24)
[2020-12-09] MEDS: MEGESTROL ACETATE 400 MG/10 ML SUSPENSION UDCUP PEG SCH ×2 (09:25→20:58)
[2020-12-09] MEDS: ETHAMBUTOL HCL 400 MG TABLET PEG SCH (09:25)
[2020-12-09] MEDS: ISONIAZID 300 MG TABLET PEG SCH (09:25)
[2020-12-09] MEDS: DOCUSATE SODIUM 100 MG/10 ML LIQUID UDCUP PEG SCH (09:25)
[2020-12-09 11:12] LABS: BASOPHILS % (AUTO) 0.3 % (0.0-2.0); EOSINOPHILS % (AUTO) 3.7 % (1.0-6.0); HEMATOCRIT 29.8 % (41-53); HEMOGLOBIN 10.1 g/dL (13.5-17.5); LYMPHOCYTES # (AUTO) 0.9 K/uL (1.0-4.8); LYMPHOCYTES % (AUTO) 40.6 % (22.0-44.0); MEAN CORPUSCULAR HGB CONC 34.1 G/dL (31.0-37.0); MEAN CORPUSCULAR VOLUME 109 fL (80-100); MONOCYTES # (AUTO) 0.2 K/uL (0.1-1.0); MONOCYTES % (AUTO) 9.2 % (2.0-9.0); NEUTROPHILS # (AUTO) 1.1 K/uL (1.8-7.7); NEUTROPHILS % (AUTO) 46.2 % (40.0-70.0); PLATELET COUNT (AUTO) 66 K/uL (150-450); RED BLOOD CELL COUNT(AUTO) 2.74 MIL/uL (4.50-5.90); RED CELL DISTRIBUTION WIDTH 15.6 % (11.5-14.5)
[2020-12-09 11:33] LABS: ALANINE AMINOTRANSFERASE 137 U/L (12-78); ALBUMIN 3.5 g/dL (3.4-5.0); ALKALINE PHOSPHATASE 85 U/L (46-116); ANION GAP 13 mmol/L (8-16); ASPARTATE AMINOTRANSFERASE 46 U/L (15-37); BILIRUBIN,TOTAL 0.1 mg/dL (0.1-1.0); CALCIUM, TOTAL 8.9 mg/dL (8.8-10.5); CARBON DIOXIDE 22 mmol/L (22-29); CHLORIDE 102 mmol/L (98-107); CREATININE 0.81 mg/dL (0.60-1.30); GLOMERULAR FILTR. RATE CALC > 60 mL/min (>60); GLUCOSE,RANDOM 124 mg/dL (70-110); POTASSIUM 3.9 mmol/L (3.5-5.1); SODIUM SERUM 137 mmol/L (136-145); TOTAL PROTEIN, SERUM 7.4 g/dL (6.4-8.2); UREA NITROGEN, BLOOD 22 mg/dL (7-18)
[2020-12-09 20:46] VITALS: BP 97/61
[2020-12-09] MEDS: MIRTAZAPINE 15 MG TABLET PO SCH (20:58)
[2020-12-10] MEDS: HEPARIN SODIUM,PORCINE 5,000 UNITS/ML VIAL SQ SCH ×3 (00:55→16:16)
[2020-12-10 03:52] VITALS: BP 94/52
[2020-12-10 06:40] LABS: BASOPHILS % (AUTO) 0.3 % (0.0-2.0); EOSINOPHILS % (AUTO) 2.4 % (1.0-6.0); HEMATOCRIT 29.4 % (41-53); HEMOGLOBIN 10.3 g/dL (13.5-17.5); LYMPHOCYTES # (AUTO) 1.1 K/uL (1.0-4.8); LYMPHOCYTES % (AUTO) 41.6 % (22.0-44.0); MEAN CORPUSCULAR HEMOGLOBIN 37.6 pg (26.0-34.0); MEAN CORPUSCULAR VOLUME 107 fL (80-100); MONOCYTES # (AUTO) 0.2 K/uL (0.1-1.0); MONOCYTES % (AUTO) 9.1 % (2.0-9.0); NEUTROPHILS # (AUTO) 1.2 K/uL (1.8-7.7); NEUTROPHILS % (AUTO) 46.6 % (40.0-70.0); PLATELET COUNT (AUTO) 65 K/uL (150-450); RED BLOOD CELL COUNT(AUTO) 2.74 MIL/uL (4.50-5.90); RED CELL DISTRIBUTION WIDTH 15.6 % (11.5-14.5)
[2020-12-10 08:05] LABS: ALANINE AMINOTRANSFERASE 132 U/L (12-78); ALBUMIN 3.7 g/dL (3.4-5.0); ALKALINE PHOSPHATASE 87 U/L (46-116); ANION GAP 13 mmol/L (8-16); ASPARTATE AMINOTRANSFERASE 45 U/L (15-37); BILIRUBIN,TOTAL 0.2 mg/dL (0.1-1.0); CALCIUM, TOTAL 9.4 mg/dL (8.8-10.5); CARBON DIOXIDE 22 mmol/L (22-29); CHLORIDE 102 mmol/L (98-107); CREATININE 0.81 mg/dL (0.60-1.30); GLOMERULAR FILTR. RATE CALC > 60 mL/min (>60); GLUCOSE,RANDOM 97 mg/dL (70-110); POTASSIUM 3.8 mmol/L (3.5-5.1); SODIUM SERUM 137 mmol/L (136-145); TOTAL PROTEIN, SERUM 7.5 g/dL (6.4-8.2); UREA NITROGEN, BLOOD 22 mg/dL (7-18)
[2020-12-10] MEDS: TraMADol HCL 50 MG TABLET PEG PRN ×2 (08:29→20:15)
[2020-12-10] MEDS: ETHAMBUTOL HCL 400 MG TABLET PEG SCH (08:32)
[2020-12-10] MEDS: MEGESTROL ACETATE 400 MG/10 ML SUSPENSION UDCUP PEG SCH ×2 (08:32→20:14)
[2020-12-10] MEDS: CYANOCOBALAMIN 500 MCG TABLET PEG SCH (08:33)
[2020-12-10] MEDS: RIFAMPIN 300 MG CAPSULE PO SCH (08:33)
[2020-12-10] MEDS: DOCUSATE SODIUM 100 MG/10 ML LIQUID UDCUP PEG SCH (08:33)
[2020-12-10] MEDS: PYRAZINAMIDE 500 MG TABLET PEG SCH (08:33)
[2020-12-10] MEDS: THIAMINE 100 MG TABLET PEG SCH (08:34)
[2020-12-10] MEDS: PYRIDOXINE HCL 50 MG TABLET PEG SCH (08:34)
[2020-12-10] MEDS: ISONIAZID 300 MG TABLET PEG SCH (08:34)
[2020-12-10] MEDS: MULTIVITAMINS WITH MINERALS, THERAPEUTIC TABLET PO SCH (08:34)
[2020-12-10] MEDS: CHOLECALCIFEROL (VIT D3) 1,000 UNITS [25 MCG] TABLET PEG SCH (08:35)
[2020-12-10 09:02] VITALS: BP 94/65
[2020-12-10] MEDS: MIRTAZAPINE 15 MG TABLET PO SCH (20:15)
[2020-12-10 21:30] VITALS: BP 103/66
[2020-12-11] MEDS: HEPARIN SODIUM,PORCINE 5,000 UNITS/ML VIAL SQ SCH ×4 (00:20→23:45)
[2020-12-11 05:15] VITALS: BP 94/55
[2020-12-11 06:25] LABS: BASOPHILS % (AUTO) 0.3 % (0.0-2.0); EOSINOPHILS % (AUTO) 1.8 % (1.0-6.0); HEMATOCRIT 30.2 % (41-53); HEMOGLOBIN 10.3 g/dL (13.5-17.5); LYMPHOCYTES # (AUTO) 1.1 K/uL (1.0-4.8); LYMPHOCYTES % (AUTO) 43.5 % (22.0-44.0); MEAN CORPUSCULAR HGB CONC 34.2 G/dL (31.0-37.0); MEAN CORPUSCULAR VOLUME 108 fL (80-100); MONOCYTES # (AUTO) 0.2 K/uL (0.1-1.0); MONOCYTES % (AUTO) 8.4 % (2.0-9.0); NEUTROPHILS # (AUTO) 1.2 K/uL (1.8-7.7); PLATELET COUNT (AUTO) 65 K/uL (150-450); RED BLOOD CELL COUNT(AUTO) 2.79 MIL/uL (4.50-5.90); RED CELL DISTRIBUTION WIDTH 15.5 % (11.5-14.5)
[2020-12-11 06:55] LABS: ALANINE AMINOTRANSFERASE 120 U/L (12-78); ALBUMIN 3.6 g/dL (3.4-5.0); ALKALINE PHOSPHATASE 81 U/L (46-116); ANION GAP 9 mmol/L (8-16); ASPARTATE AMINOTRANSFERASE 33 U/L (15-37); BILIRUBIN,TOTAL 0.1 mg/dL (0.1-1.0); CALCIUM, TOTAL 9.3 mg/dL (8.8-10.5); CARBON DIOXIDE 24 mmol/L (22-29); CHLORIDE 103 mmol/L (98-107); CREATININE 0.82 mg/dL (0.60-1.30); GLOMERULAR FILTR. RATE CALC > 60 mL/min (>60); GLUCOSE,RANDOM 116 mg/dL (70-110); POTASSIUM 3.9 mmol/L (3.5-5.1); SODIUM SERUM 136 mmol/L (136-145); TOTAL PROTEIN, SERUM 7.5 g/dL (6.4-8.2); UREA NITROGEN, BLOOD 23 mg/dL (7-18)
[2020-12-11 08:29] VITALS: BP 96/62
[2020-12-11] MEDS: DOCUSATE SODIUM 100 MG/10 ML LIQUID UDCUP PEG SCH (08:40)
[2020-12-11] MEDS: PYRIDOXINE HCL 50 MG TABLET PEG SCH (08:40)
[2020-12-11] MEDS: RIFAMPIN 300 MG CAPSULE PO SCH (08:40)
[2020-12-11] MEDS: MEGESTROL ACETATE 400 MG/10 ML SUSPENSION UDCUP PEG SCH ×2 (08:40→20:32)
[2020-12-11] MEDS: PYRAZINAMIDE 500 MG TABLET PEG SCH (08:41)
[2020-12-11] MEDS: MULTIVITAMINS WITH MINERALS, THERAPEUTIC TABLET PO SCH (08:41)
[2020-12-11] MEDS: CHOLECALCIFEROL (VIT D3) 1,000 UNITS [25 MCG] TABLET PEG SCH (08:41)
[2020-12-11] MEDS: CYANOCOBALAMIN 500 MCG TABLET PEG SCH (08:41)
[2020-12-11] MEDS: ISONIAZID 300 MG TABLET PEG SCH (08:41)
[2020-12-11] MEDS: THIAMINE 100 MG TABLET PEG SCH (08:41)
[2020-12-11] MEDS: ETHAMBUTOL HCL 400 MG TABLET PEG SCH (08:41)
[2020-12-11] MEDS: TraMADol HCL 50 MG TABLET PEG PRN (12:00)
[2020-12-11 20:18] VITALS: BP 107/68
[2020-12-11] MEDS: MIRTAZAPINE 15 MG TABLET PO SCH (20:32)
[2020-12-11] MEDS: ACETAMINOPHEN 325 MG TABLET PEG PRN (20:32)
[2020-12-12] MEDS: TraMADol HCL 50 MG TABLET PEG PRN ×3 (00:07→21:40)
[2020-12-12 00:26] LABS: GLUCOMETER DEV NAME(LOC) 6N.1; GLUCOSE,POINT OF CARE 116 MG/DL (70-110)
[2020-12-12 04:35] VITALS: BP 99/64
[2020-12-12 06:43] LABS: BASOPHILS % (AUTO) 0.5 % (0.0-2.0); EOSINOPHILS % (AUTO) 2.4 % (1.0-6.0); HEMATOCRIT 29.8 % (41-53); HEMOGLOBIN 10.5 g/dL (13.5-17.5); LYMPHOCYTES # (AUTO) 1.1 K/uL (1.0-4.8); LYMPHOCYTES % (AUTO) 47.1 % (22.0-44.0); MEAN CORPUSCULAR HEMOGLOBIN 38.1 pg (26.0-34.0); MEAN CORPUSCULAR HGB CONC 35.3 G/dL (31.0-37.0); MEAN CORPUSCULAR VOLUME 108 fL (80-100); MONOCYTES # (AUTO) 0.2 K/uL (0.1-1.0); MONOCYTES % (AUTO) 10.1 % (2.0-9.0); NEUTROPHILS % (AUTO) 39.9 % (40.0-70.0); PLATELET COUNT (AUTO) 66 K/uL (150-450); RED BLOOD CELL COUNT(AUTO) 2.76 MIL/uL (4.50-5.90); RED CELL DISTRIBUTION WIDTH 15.4 % (11.5-14.5)
[2020-12-12 08:08] LABS: ALANINE AMINOTRANSFERASE 101 U/L (12-78); ALBUMIN 3.7 g/dL (3.4-5.0); ALKALINE PHOSPHATASE 85 U/L (46-116); ANION GAP 9 mmol/L (8-16); ASPARTATE AMINOTRANSFERASE 26 U/L (15-37); BILIRUBIN,TOTAL 0.1 mg/dL (0.1-1.0); CALCIUM, TOTAL 9.4 mg/dL (8.8-10.5); CARBON DIOXIDE 25 mmol/L (22-29); CHLORIDE 104 mmol/L (98-107); CREATININE 0.92 mg/dL (0.60-1.30); GLOMERULAR FILTR. RATE CALC > 60 mL/min (>60); GLUCOSE,RANDOM 89 mg/dL (70-110); POTASSIUM 3.9 mmol/L (3.5-5.1); SODIUM SERUM 138 mmol/L (136-145); TOTAL PROTEIN, SERUM 7.7 g/dL (6.4-8.2); UREA NITROGEN, BLOOD 24 mg/dL (7-18)
[2020-12-12 08:43] VITALS: BP 98/62
[2020-12-12] MEDS: DOCUSATE SODIUM 100 MG/10 ML LIQUID UDCUP PEG SCH (09:39)
[2020-12-12] MEDS: THIAMINE 100 MG TABLET PEG SCH (09:39)
[2020-12-12] MEDS: MEGESTROL ACETATE 400 MG/10 ML SUSPENSION UDCUP PEG SCH ×3 (09:39→20:51)
[2020-12-12] MEDS: MULTIVITAMINS WITH MINERALS, THERAPEUTIC TABLET PO SCH (09:39)
[2020-12-12] MEDS: CYANOCOBALAMIN 500 MCG TABLET PEG SCH (09:39)
[2020-12-12] MEDS: ISONIAZID 300 MG TABLET PEG SCH (09:39)
[2020-12-12] MEDS: CHOLECALCIFEROL (VIT D3) 1,000 UNITS [25 MCG] TABLET PEG SCH (09:39)
[2020-12-12] MEDS: PYRAZINAMIDE 500 MG TABLET PEG SCH (09:40)
[2020-12-12] MEDS: PYRIDOXINE HCL 50 MG TABLET PEG SCH (09:40)
[2020-12-12] MEDS: ETHAMBUTOL HCL 400 MG TABLET PEG SCH (09:40)
[2020-12-12] MEDS: RIFAMPIN 300 MG CAPSULE PO SCH (09:56)
[2020-12-12] MEDS: HEPARIN SODIUM,PORCINE 5,000 UNITS/ML VIAL SQ SCH ×3 (09:56→23:54)
[2020-12-12] MEDS: MIRTAZAPINE 15 MG TABLET PO SCH (20:46)
[2020-12-12 20:54] VITALS: BP 100/67
[2020-12-13 05:04] VITALS: BP 96/56
[2020-12-13 06:55] LABS: BASOPHILS % (AUTO) 0.3 % (0.0-2.0); EOSINOPHILS % (AUTO) 3.1 % (1.0-6.0); HEMATOCRIT 29.7 % (41-53); HEMOGLOBIN 10.4 g/dL (13.5-17.5); LYMPHOCYTES # (AUTO) 1.1 K/uL (1.0-4.8); LYMPHOCYTES % (AUTO) 43.1 % (22.0-44.0); MEAN CORPUSCULAR HEMOGLOBIN 37.5 pg (26.0-34.0); MEAN CORPUSCULAR HGB CONC 35.2 G/dL (31.0-37.0); MEAN CORPUSCULAR VOLUME 107 fL (80-100); MONOCYTES # (AUTO) 0.2 K/uL (0.1-1.0); MONOCYTES % (AUTO) 9.5 % (2.0-9.0); NEUTROPHILS # (AUTO) 1.1 K/uL (1.8-7.7); PLATELET COUNT (AUTO) 63 K/uL (150-450); RED BLOOD CELL COUNT(AUTO) 2.78 MIL/uL (4.50-5.90); RED CELL DISTRIBUTION WIDTH 15.7 % (11.5-14.5)
[2020-12-13 07:28] LABS: ALANINE AMINOTRANSFERASE 87 U/L (12-78); ALBUMIN 3.7 g/dL (3.4-5.0); ALKALINE PHOSPHATASE 86 U/L (46-116); ANION GAP 11 mmol/L (8-16); ASPARTATE AMINOTRANSFERASE 21 U/L (15-37); BILIRUBIN,TOTAL 0.1 mg/dL (0.1-1.0); CALCIUM, TOTAL 9.8 mg/dL (8.8-10.5); CARBON DIOXIDE 25 mmol/L (22-29); CHLORIDE 105 mmol/L (98-107); CREATININE 0.92 mg/dL (0.60-1.30); GLOMERULAR FILTR. RATE CALC > 60 mL/min (>60); GLUCOSE,RANDOM 91 mg/dL (70-110); POTASSIUM 4.1 mmol/L (3.5-5.1); SODIUM SERUM 141 mmol/L (136-145); TOTAL PROTEIN, SERUM 7.6 g/dL (6.4-8.2); UREA NITROGEN, BLOOD 25 mg/dL (7-18)
[2020-12-13 08:36] VITALS: BP 100/57
[2020-12-13] MEDS: HEPARIN SODIUM,PORCINE 5,000 UNITS/ML VIAL SQ SCH ×2 (09:32→16:23)
[2020-12-13] MEDS: CHOLECALCIFEROL (VIT D3) 1,000 UNITS [25 MCG] TABLET PEG SCH (09:33)
[2020-12-13] MEDS: PYRAZINAMIDE 500 MG TABLET PEG SCH (09:33)
[2020-12-13] MEDS: CYANOCOBALAMIN 500 MCG TABLET PEG SCH (09:33)
[2020-12-13] MEDS: RIFAMPIN 300 MG CAPSULE PO SCH (09:33)
[2020-12-13] MEDS: PYRIDOXINE HCL 50 MG TABLET PEG SCH (09:33)
[2020-12-13] MEDS: THIAMINE 100 MG TABLET PEG SCH (09:33)
[2020-12-13] MEDS: DOCUSATE SODIUM 100 MG/10 ML LIQUID UDCUP PEG SCH (09:34)
[2020-12-13] MEDS: MEGESTROL ACETATE 400 MG/10 ML SUSPENSION UDCUP PEG SCH ×2 (09:34→21:45)
[2020-12-13] MEDS: ISONIAZID 300 MG TABLET PEG SCH (09:34)
[2020-12-13] MEDS: ETHAMBUTOL HCL 400 MG TABLET PEG SCH (09:35)
[2020-12-13] MEDS: MULTIVITAMINS WITH MINERALS, THERAPEUTIC TABLET PO SCH (09:37)
[2020-12-13] MEDS: TraMADol HCL 50 MG TABLET PEG PRN (11:38)
[2020-12-13 20:10] VITALS: BP 91/58
[2020-12-13] MEDS: MIRTAZAPINE 15 MG TABLET PO SCH (21:45)
[2020-12-13] MEDS: ACETAMINOPHEN 325 MG TABLET PEG PRN (21:46)
[2020-12-14] MEDS: HEPARIN SODIUM,PORCINE 5,000 UNITS/ML VIAL SQ SCH ×2 (00:45→08:00)
[2020-12-14 04:42] VITALS: BP 100/68
[2020-12-14 07:04] LABS: BASOPHILS % (AUTO) 0.3 % (0.0-2.0); EOSINOPHILS % (AUTO) 2.3 % (1.0-6.0); HEMATOCRIT 30.3 % (41-53); HEMOGLOBIN 10.6 g/dL (13.5-17.5); LYMPHOCYTES % (AUTO) 40.9 % (22.0-44.0); MEAN CORPUSCULAR HEMOGLOBIN 37.2 pg (26.0-34.0); MEAN CORPUSCULAR VOLUME 107 fL (80-100); MONOCYTES # (AUTO) 0.2 K/uL (0.1-1.0); MONOCYTES % (AUTO) 9.9 % (2.0-9.0); NEUTROPHILS # (AUTO) 1.2 K/uL (1.8-7.7); NEUTROPHILS % (AUTO) 46.6 % (40.0-70.0); PLATELET COUNT (AUTO) 65 K/uL (150-450); RED BLOOD CELL COUNT(AUTO) 2.84 MIL/uL (4.50-5.90); RED CELL DISTRIBUTION WIDTH 15.2 % (11.5-14.5)
[2020-12-14 07:40] LABS: ALANINE AMINOTRANSFERASE 74 U/L (12-78); ALBUMIN 3.7 g/dL (3.4-5.0); ALKALINE PHOSPHATASE 85 U/L (46-116); ANION GAP 11 mmol/L (8-16); ASPARTATE AMINOTRANSFERASE 17 U/L (15-37); BILIRUBIN,TOTAL 0.2 mg/dL (0.1-1.0); CALCIUM, TOTAL 9.6 mg/dL (8.8-10.5); CARBON DIOXIDE 25 mmol/L (22-29); CHLORIDE 104 mmol/L (98-107); CREATININE 0.85 mg/dL (0.60-1.30); GLOMERULAR FILTR. RATE CALC > 60 mL/min (>60); GLUCOSE,RANDOM 92 mg/dL (70-110); POTASSIUM 3.8 mmol/L (3.5-5.1); SODIUM SERUM 140 mmol/L (136-145); TOTAL PROTEIN, SERUM 7.6 g/dL (6.4-8.2); UREA NITROGEN, BLOOD 25 mg/dL (7-18)
[2020-12-14 08:26] VITALS: BP 107/57
[2020-12-14] MEDS: ACETAMINOPHEN 325 MG TABLET PEG PRN (09:08)
[2020-12-14] MEDS: CYANOCOBALAMIN 500 MCG TABLET PEG SCH (09:08)
[2020-12-14] MEDS: DOCUSATE SODIUM 100 MG/10 ML LIQUID UDCUP PEG SCH (09:09)
[2020-12-14] MEDS: RIFAMPIN 300 MG CAPSULE PO SCH (09:09)
[2020-12-14] MEDS: ETHAMBUTOL HCL 400 MG TABLET PEG SCH (09:09)
[2020-12-14] MEDS: MEGESTROL ACETATE 400 MG/10 ML SUSPENSION UDCUP PEG SCH ×2 (09:11→21:22)
[2020-12-14] MEDS: PYRAZINAMIDE 500 MG TABLET PEG SCH (09:11)
[2020-12-14] MEDS: MULTIVITAMINS WITH MINERALS, THERAPEUTIC TABLET PO SCH (09:11)
[2020-12-14] MEDS: ISONIAZID 300 MG TABLET PEG SCH (09:12)
[2020-12-14] MEDS: THIAMINE 100 MG TABLET PEG SCH (09:13)
[2020-12-14] MEDS: PYRIDOXINE HCL 50 MG TABLET PEG SCH (09:13)
[2020-12-14] MEDS: CHOLECALCIFEROL (VIT D3) 1,000 UNITS [25 MCG] TABLET PEG SCH (09:14)
[2020-12-14] MEDS: TraMADol HCL 50 MG TABLET PEG PRN (20:09)
[2020-12-14 20:10] VITALS: BP 109/70
[2020-12-14] MEDS: MIRTAZAPINE 30 MG TABLET PO SCH (21:22)
[2020-12-15 06:48] LABS: BASOPHILS % (AUTO) 0.3 % (0.0-2.0); EOSINOPHILS % (AUTO) 2.4 % (1.0-6.0); HEMATOCRIT 30.1 % (41-53); HEMOGLOBIN 10.8 g/dL (13.5-17.5); LYMPHOCYTES % (AUTO) 39.3 % (22.0-44.0); MEAN CORPUSCULAR HEMOGLOBIN 37.9 pg (26.0-34.0); MEAN CORPUSCULAR HGB CONC 35.9 G/dL (31.0-37.0); MEAN CORPUSCULAR VOLUME 106 fL (80-100); MONOCYTES # (AUTO) 0.2 K/uL (0.1-1.0); MONOCYTES % (AUTO) 9.2 % (2.0-9.0); NEUTROPHILS # (AUTO) 1.3 K/uL (1.8-7.7); NEUTROPHILS % (AUTO) 48.8 % (40.0-70.0); PLATELET COUNT (AUTO) 63 K/uL (150-450); RED BLOOD CELL COUNT(AUTO) 2.85 MIL/uL (4.50-5.90); RED CELL DISTRIBUTION WIDTH 15.6 % (11.5-14.5)
[2020-12-15 08:02] LABS: ALANINE AMINOTRANSFERASE 64 U/L (12-78); ALBUMIN 3.8 g/dL (3.4-5.0); ALKALINE PHOSPHATASE 80 U/L (46-116); ANION GAP 10 mmol/L (8-16); ASPARTATE AMINOTRANSFERASE 15 U/L (15-37); BILIRUBIN,TOTAL 0.2 mg/dL (0.1-1.0); CALCIUM, TOTAL 9.6 mg/dL (8.8-10.5); CARBON DIOXIDE 25 mmol/L (22-29); CHLORIDE 106 mmol/L (98-107); CREATININE 0.88 mg/dL (0.60-1.30); GLOMERULAR FILTR. RATE CALC > 60 mL/min (>60); GLUCOSE,RANDOM 102 mg/dL (70-110); POTASSIUM 4.2 mmol/L (3.5-5.1); SODIUM SERUM 141 mmol/L (136-145); TOTAL PROTEIN, SERUM 7.8 g/dL (6.4-8.2); UREA NITROGEN, BLOOD 24 mg/dL (7-18)
[2020-12-15] MEDS: PYRAZINAMIDE 500 MG TABLET PEG SCH (08:09)
[2020-12-15] MEDS: ISONIAZID 300 MG TABLET PEG SCH (08:09)
[2020-12-15] MEDS: RIFAMPIN 300 MG CAPSULE PO SCH (08:10)
[2020-12-15] MEDS: CHOLECALCIFEROL (VIT D3) 1,000 UNITS [25 MCG] TABLET PEG SCH (08:10)
[2020-12-15] MEDS: MULTIVITAMINS WITH MINERALS, THERAPEUTIC TABLET PO SCH (08:10)
[2020-12-15] MEDS: PYRIDOXINE HCL 50 MG TABLET PEG SCH (08:10)
[2020-12-15] MEDS: CYANOCOBALAMIN 500 MCG TABLET PEG SCH (08:10)
[2020-12-15] MEDS: THIAMINE 100 MG TABLET PEG SCH (08:10)
[2020-12-15] MEDS: ETHAMBUTOL HCL 400 MG TABLET PEG SCH (08:11)
[2020-12-15] MEDS: DOCUSATE SODIUM 100 MG/10 ML LIQUID UDCUP PEG SCH (08:11)
[2020-12-15] MEDS: MEGESTROL ACETATE 400 MG/10 ML SUSPENSION UDCUP PEG SCH ×2 (08:11→20:27)
[2020-12-15] MEDS: ACETAMINOPHEN 325 MG TABLET PEG PRN (08:18)
[2020-12-15 09:15] VITALS: BP 106/66
[2020-12-15 19:49] VITALS: BP 97/57
[2020-12-15] MEDS: MIRTAZAPINE 30 MG TABLET PO SCH (20:27)
[2020-12-16 04:41] VITALS: BP 105/73
[2020-12-16] MEDS: ACETAMINOPHEN 325 MG TABLET PEG PRN ×2 (05:14→21:02)
[2020-12-16 06:45] LABS: BASOPHILS % (AUTO) 0.3 % (0.0-2.0); EOSINOPHILS % (AUTO) 2.8 % (1.0-6.0); HEMOGLOBIN 10.8 g/dL (13.5-17.5); LYMPHOCYTES # (AUTO) 1.1 K/uL (1.0-4.8); LYMPHOCYTES % (AUTO) 41.3 % (22.0-44.0); MEAN CORPUSCULAR HEMOGLOBIN 37.6 pg (26.0-34.0); MEAN CORPUSCULAR HGB CONC 35.9 G/dL (31.0-37.0); MEAN CORPUSCULAR VOLUME 105 fL (80-100); MONOCYTES # (AUTO) 0.2 K/uL (0.1-1.0); MONOCYTES % (AUTO) 7.5 % (2.0-9.0); NEUTROPHILS # (AUTO) 1.3 K/uL (1.8-7.7); NEUTROPHILS % (AUTO) 48.1 % (40.0-70.0); PLATELET COUNT (AUTO) 65 K/uL (150-450); RED BLOOD CELL COUNT(AUTO) 2.87 MIL/uL (4.50-5.90); RED CELL DISTRIBUTION WIDTH 15.3 % (11.5-14.5)
[2020-12-16 07:31] LABS: ALANINE AMINOTRANSFERASE 55 U/L (12-78); ALBUMIN 3.8 g/dL (3.4-5.0); ALKALINE PHOSPHATASE 89 U/L (46-116); ANION GAP 10 mmol/L (8-16); ASPARTATE AMINOTRANSFERASE 15 U/L (15-37); BILIRUBIN,TOTAL 0.2 mg/dL (0.1-1.0); CALCIUM, TOTAL 9.4 mg/dL (8.8-10.5); CARBON DIOXIDE 24 mmol/L (22-29); CHLORIDE 104 mmol/L (98-107); CREATININE 0.83 mg/dL (0.60-1.30); GLOMERULAR FILTR. RATE CALC > 60 mL/min (>60); GLUCOSE,RANDOM 99 mg/dL (70-110); POTASSIUM 3.9 mmol/L (3.5-5.1); SODIUM SERUM 138 mmol/L (136-145); TOTAL PROTEIN, SERUM 7.7 g/dL (6.4-8.2); UREA NITROGEN, BLOOD 25 mg/dL (7-18)
[2020-12-16 08:16] VITALS: BP 114/77
[2020-12-16] MEDS: PYRIDOXINE HCL 50 MG TABLET PEG SCH (09:00)
[2020-12-16] MEDS ORDERED: HALOPERIDOL DECANOATE 100 MG/ML VIAL IM SCH (09:00)
[2020-12-16] MEDS: CYANOCOBALAMIN 500 MCG TABLET PEG SCH (09:18)
[2020-12-16] MEDS: PYRAZINAMIDE 500 MG TABLET PEG SCH (09:18)
[2020-12-16] MEDS: CHOLECALCIFEROL (VIT D3) 1,000 UNITS [25 MCG] TABLET PEG SCH (09:19)
[2020-12-16] MEDS: MULTIVITAMINS WITH MINERALS, THERAPEUTIC TABLET PO SCH (09:19)
[2020-12-16] MEDS: THIAMINE 100 MG TABLET PEG SCH (09:19)
[2020-12-16] MEDS: MEGESTROL ACETATE 400 MG/10 ML SUSPENSION UDCUP PEG SCH ×2 (09:19→20:55)
[2020-12-16] MEDS: ETHAMBUTOL HCL 400 MG TABLET PEG SCH (09:19)
[2020-12-16] MEDS: ISONIAZID 300 MG TABLET PEG SCH (09:19)
[2020-12-16] MEDS: DOCUSATE SODIUM 100 MG/10 ML LIQUID UDCUP PEG SCH (09:19)
[2020-12-16] MEDS: RIFAMPIN 300 MG CAPSULE PO SCH (09:19)
[2020-12-16 18:37] LABS: COVID AG,FIA SOURCE NASOPHARYNGEAL
[2020-12-16 20:00] VITALS: BP_SYST 105; BP_SYST 115; BP_DIAS 58; BP_DIAS 65
[2020-12-16] MEDS: MIRTAZAPINE 30 MG TABLET PO SCH (20:55)
[2020-12-17 04:27] VITALS: BP 104/66
[2020-12-17] MEDS: TraMADol HCL 50 MG TABLET PEG PRN ×3 (06:11→20:22)
[2020-12-17 07:21] LABS: BASOPHILS % (AUTO) 0.4 % (0.0-2.0); EOSINOPHILS % (AUTO) 2.3 % (1.0-6.0); HEMATOCRIT 29.3 % (41-53); HEMOGLOBIN 10.3 g/dL (13.5-17.5); LYMPHOCYTES # (AUTO) 1.1 K/uL (1.0-4.8); LYMPHOCYTES % (AUTO) 44.2 % (22.0-44.0); MEAN CORPUSCULAR HEMOGLOBIN 37.2 pg (26.0-34.0); MEAN CORPUSCULAR HGB CONC 35.2 G/dL (31.0-37.0); MEAN CORPUSCULAR VOLUME 106 fL (80-100); MONOCYTES # (AUTO) 0.2 K/uL (0.1-1.0); MONOCYTES % (AUTO) 8.5 % (2.0-9.0); NEUTROPHILS # (AUTO) 1.1 K/uL (1.8-7.7); NEUTROPHILS % (AUTO) 44.6 % (40.0-70.0); PLATELET COUNT (AUTO) 58 K/uL (150-450); RED BLOOD CELL COUNT(AUTO) 2.78 MIL/uL (4.50-5.90); RED CELL DISTRIBUTION WIDTH 15.4 % (11.5-14.5)
[2020-12-17 07:56] LABS: ALANINE AMINOTRANSFERASE 45 U/L (12-78); ALBUMIN 3.7 g/dL (3.4-5.0); ALKALINE PHOSPHATASE 80 U/L (46-116); ANION GAP 11 mmol/L (8-16); ASPARTATE AMINOTRANSFERASE 13 U/L (15-37); BILIRUBIN,TOTAL 0.2 mg/dL (0.1-1.0); CALCIUM, TOTAL 9.4 mg/dL (8.8-10.5); CARBON DIOXIDE 23 mmol/L (22-29); CHLORIDE 104 mmol/L (98-107); CREATININE 0.64 mg/dL (0.60-1.30); GLOMERULAR FILTR. RATE CALC > 60 mL/min (>60); GLUCOSE,RANDOM 90 mg/dL (70-110); POTASSIUM 3.7 mmol/L (3.5-5.1); SODIUM SERUM 138 mmol/L (136-145); TOTAL PROTEIN, SERUM 7.4 g/dL (6.4-8.2); UREA NITROGEN, BLOOD 23 mg/dL (7-18)
[2020-12-17 08:26] VITALS: BP 102/64
[2020-12-17] MEDS: RIFAMPIN 300 MG CAPSULE PO SCH (08:45)
[2020-12-17] MEDS: PYRAZINAMIDE 500 MG TABLET PEG SCH (08:45)
[2020-12-17] MEDS: PYRIDOXINE HCL 50 MG TABLET PEG SCH (08:46)
[2020-12-17] MEDS: CYANOCOBALAMIN 500 MCG TABLET PEG SCH (08:46)
[2020-12-17] MEDS: MEGESTROL ACETATE 400 MG/10 ML SUSPENSION UDCUP PEG SCH ×2 (08:46→20:21)
[2020-12-17] MEDS: ISONIAZID 300 MG TABLET PEG SCH (08:46)
[2020-12-17] MEDS: THIAMINE 100 MG TABLET PEG SCH (08:46)
[2020-12-17] MEDS: DOCUSATE SODIUM 100 MG/10 ML LIQUID UDCUP PEG SCH (08:46)
[2020-12-17] MEDS: CHOLECALCIFEROL (VIT D3) 1,000 UNITS [25 MCG] TABLET PEG SCH (08:46)
[2020-12-17] MEDS: ETHAMBUTOL HCL 400 MG TABLET PEG SCH (08:48)
[2020-12-17] MEDS: MULTIVITAMINS WITH MINERALS, THERAPEUTIC TABLET PO SCH (09:00)
[2020-12-17] MEDS: MIRTAZAPINE 30 MG TABLET PO SCH (20:21)
[2020-12-17 20:35] VITALS: BP 93/65
[2020-12-18 05:06] VITALS: BP 100/59
[2020-12-18 07:31] LABS: BASOPHILS % (AUTO) 0.2 % (0.0-2.0); EOSINOPHILS % (AUTO) 2.2 % (1.0-6.0); HEMATOCRIT 30.4 % (41-53); HEMOGLOBIN 10.7 g/dL (13.5-17.5); LYMPHOCYTES # (AUTO) 1.3 K/uL (1.0-4.8); LYMPHOCYTES % (AUTO) 41.5 % (22.0-44.0); MEAN CORPUSCULAR HEMOGLOBIN 37.8 pg (26.0-34.0); MEAN CORPUSCULAR HGB CONC 35.4 G/dL (31.0-37.0); MEAN CORPUSCULAR VOLUME 107 fL (80-100); MONOCYTES # (AUTO) 0.2 K/uL (0.1-1.0); MONOCYTES % (AUTO) 7.5 % (2.0-9.0); NEUTROPHILS # (AUTO) 1.5 K/uL (1.8-7.7); NEUTROPHILS % (AUTO) 48.6 % (40.0-70.0); RED BLOOD CELL COUNT(AUTO) 2.85 MIL/uL (4.50-5.90); RED CELL DISTRIBUTION WIDTH 15.4 % (11.5-14.5)
[2020-12-18 07:41] VITALS: BP 102/59
[2020-12-18 07:49] LABS: ALANINE AMINOTRANSFERASE 39 U/L (12-78); ALBUMIN 3.7 g/dL (3.4-5.0); ALKALINE PHOSPHATASE 77 U/L (46-116); ANION GAP 7 mmol/L (8-16); ASPARTATE AMINOTRANSFERASE 12 U/L (15-37); BILIRUBIN,TOTAL 0.2 mg/dL (0.1-1.0); CALCIUM, TOTAL 9.5 mg/dL (8.8-10.5); CARBON DIOXIDE 26 mmol/L (22-29); CHLORIDE 103 mmol/L (98-107); CREATININE 0.95 mg/dL (0.60-1.30); GLOMERULAR FILTR. RATE CALC > 60 mL/min (>60); GLUCOSE,RANDOM 82 mg/dL (70-110); POTASSIUM 3.9 mmol/L (3.5-5.1); SODIUM SERUM 136 mmol/L (136-145); TOTAL PROTEIN, SERUM 7.3 g/dL (6.4-8.2); UREA NITROGEN, BLOOD 24 mg/dL (7-18)
[2020-12-18 08:31] LABS: PLATELET COUNT (AUTO) 57 K/uL (150-450)
[2020-12-18] MEDS: PYRIDOXINE HCL 50 MG TABLET PEG SCH (08:59)
[2020-12-18] MEDS: CYANOCOBALAMIN 500 MCG TABLET PEG SCH (08:59)
[2020-12-18] MEDS: THIAMINE 100 MG TABLET PEG SCH (09:00)
[2020-12-18] MEDS: MULTIVITAMINS WITH MINERALS, THERAPEUTIC TABLET PO SCH (09:00)
[2020-12-18] MEDS: CHOLECALCIFEROL (VIT D3) 1,000 UNITS [25 MCG] TABLET PEG SCH (09:00)
[2020-12-18] MEDS: TraMADol HCL 50 MG TABLET PEG PRN ×2 (09:00→20:47)
[2020-12-18] MEDS: RIFAMPIN 300 MG CAPSULE PO SCH (09:01)
[2020-12-18] MEDS: DOCUSATE SODIUM 100 MG/10 ML LIQUID UDCUP PEG SCH (09:01)
[2020-12-18] MEDS: ETHAMBUTOL HCL 400 MG TABLET PEG SCH (09:01)
[2020-12-18] MEDS: MEGESTROL ACETATE 400 MG/10 ML SUSPENSION UDCUP PEG SCH ×2 (09:01→20:47)
[2020-12-18] MEDS: ISONIAZID 300 MG TABLET PEG SCH (09:01)
[2020-12-18] MEDS: PYRAZINAMIDE 500 MG TABLET PEG SCH (09:01)
[2020-12-18 20:32] VITALS: BP 98/64
[2020-12-18] MEDS: MIRTAZAPINE 30 MG TABLET PO SCH (20:47)
[2020-12-19 00:25] VITALS: BP 98/64
[2020-12-19 05:45] VITALS: BP 97/64
[2020-12-19] MEDS: MULTIVITAMINS WITH MINERALS, THERAPEUTIC TABLET PO SCH (08:04)
[2020-12-19] MEDS: CHOLECALCIFEROL (VIT D3) 1,000 UNITS [25 MCG] TABLET PEG SCH (08:04)
[2020-12-19] MEDS: THIAMINE 100 MG TABLET PEG SCH (08:04)
[2020-12-19] MEDS: PYRIDOXINE HCL 50 MG TABLET PEG SCH (08:05)
[2020-12-19] MEDS: ETHAMBUTOL HCL 400 MG TABLET PEG SCH (08:05)
[2020-12-19] MEDS: PYRAZINAMIDE 500 MG TABLET PEG SCH (08:05)
[2020-12-19] MEDS: CYANOCOBALAMIN 500 MCG TABLET PEG SCH (08:05)
[2020-12-19] MEDS: MEGESTROL ACETATE 400 MG/10 ML SUSPENSION UDCUP PEG SCH ×2 (08:05→20:05)
[2020-12-19] MEDS: ISONIAZID 300 MG TABLET PEG SCH (08:05)
[2020-12-19] MEDS: RIFAMPIN 300 MG CAPSULE PO SCH (08:05)
[2020-12-19] MEDS: DOCUSATE SODIUM 100 MG/10 ML LIQUID UDCUP PEG SCH (08:06)
[2020-12-19 08:24] VITALS: BP 129/76
[2020-12-19] MEDS: MIRTAZAPINE 30 MG TABLET PO SCH (20:05)
[2020-12-19] MEDS: TraMADol HCL 50 MG TABLET PEG PRN (20:18)
[2020-12-19 20:22] VITALS: BP 102/67
[2020-12-20 04:46] VITALS: BP 99/62
[2020-12-20 07:24] VITALS: BP 102/57
[2020-12-20] MEDS: THIAMINE 100 MG TABLET PEG SCH (08:09)
[2020-12-20] MEDS: MULTIVITAMINS WITH MINERALS, THERAPEUTIC TABLET PO SCH (08:09)
[2020-12-20] MEDS: PYRAZINAMIDE 500 MG TABLET PEG SCH (08:09)
[2020-12-20] MEDS: PYRIDOXINE HCL 50 MG TABLET PEG SCH (08:09)
[2020-12-20] MEDS: CYANOCOBALAMIN 500 MCG TABLET PEG SCH (08:09)
[2020-12-20] MEDS: TraMADol HCL 50 MG TABLET PEG PRN ×2 (08:09→18:43)
[2020-12-20] MEDS: ISONIAZID 300 MG TABLET PEG SCH (08:10)
[2020-12-20] MEDS: CHOLECALCIFEROL (VIT D3) 1,000 UNITS [25 MCG] TABLET PEG SCH (08:10)
[2020-12-20] MEDS: ETHAMBUTOL HCL 400 MG TABLET PEG SCH (08:10)
[2020-12-20] MEDS: MEGESTROL ACETATE 400 MG/10 ML SUSPENSION UDCUP PEG SCH ×2 (08:10→20:07)
[2020-12-20] MEDS: DOCUSATE SODIUM 100 MG/10 ML LIQUID UDCUP PEG SCH (08:10)
[2020-12-20] MEDS: RIFAMPIN 300 MG CAPSULE PO SCH (08:10)
[2020-12-20] MEDS: MIRTAZAPINE 30 MG TABLET PO SCH (20:06)
[2020-12-20] MEDS: QUEtiapine FUMARATE 25 MG TABLET PEG PRN (20:09)
[2020-12-20 20:23] VITALS: BP 96/54
[2020-12-21 07:43] VITALS: BP 116/64
[2020-12-21] MEDS: CHOLECALCIFEROL (VIT D3) 1,000 UNITS [25 MCG] TABLET PEG SCH (07:59)
[2020-12-21] MEDS: THIAMINE 100 MG TABLET PEG SCH (07:59)
[2020-12-21] MEDS: PYRIDOXINE HCL 50 MG TABLET PEG SCH (07:59)
[2020-12-21] MEDS: MULTIVITAMINS WITH MINERALS, THERAPEUTIC TABLET PO SCH (07:59)
[2020-12-21] MEDS: TraMADol HCL 50 MG TABLET PEG PRN ×2 (07:59→20:34)
[2020-12-21] MEDS: RIFAMPIN 300 MG CAPSULE PO SCH (07:59)
[2020-12-21] MEDS: CYANOCOBALAMIN 500 MCG TABLET PEG SCH (08:00)
[2020-12-21] MEDS: ETHAMBUTOL HCL 400 MG TABLET PEG SCH (08:00)
[2020-12-21] MEDS: DOCUSATE SODIUM 100 MG/10 ML LIQUID UDCUP PEG SCH (08:00)
[2020-12-21] MEDS: PYRAZINAMIDE 500 MG TABLET PEG SCH (08:00)
[2020-12-21] MEDS: MEGESTROL ACETATE 400 MG/10 ML SUSPENSION UDCUP PEG SCH ×2 (08:00→20:24)
[2020-12-21] MEDS: ISONIAZID 300 MG TABLET PEG SCH (08:00)
[2020-12-21 20:00] VITALS: BP 101/67
[2020-12-21] MEDS: MIRTAZAPINE 30 MG TABLET PO SCH (20:22)
[2020-12-22 04:50] VITALS: BP 98/64
[2020-12-22 05:50] VITALS: BP 98/64
[2020-12-22 08:00] VITALS: BP 104/59
[2020-12-22] MEDS: ISONIAZID 300 MG TABLET PEG SCH (08:13)
[2020-12-22] MEDS: TraMADol HCL 50 MG TABLET PEG PRN ×2 (08:13→20:38)
[2020-12-22] MEDS: MULTIVITAMINS WITH MINERALS, THERAPEUTIC TABLET PO SCH (08:14)
[2020-12-22] MEDS: DOCUSATE SODIUM 100 MG/10 ML LIQUID UDCUP PEG SCH (08:14)
[2020-12-22] MEDS: RIFAMPIN 300 MG CAPSULE PO SCH (08:14)
[2020-12-22] MEDS: PYRIDOXINE HCL 50 MG TABLET PEG SCH (08:14)
[2020-12-22] MEDS: THIAMINE 100 MG TABLET PEG SCH (08:14)
[2020-12-22] MEDS: ETHAMBUTOL HCL 400 MG TABLET PEG SCH (08:14)
[2020-12-22] MEDS: PYRAZINAMIDE 500 MG TABLET PEG SCH (08:14)
[2020-12-22] MEDS: CYANOCOBALAMIN 500 MCG TABLET PEG SCH (08:14)
[2020-12-22] MEDS: CHOLECALCIFEROL (VIT D3) 1,000 UNITS [25 MCG] TABLET PEG SCH (08:14)
[2020-12-22] MEDS: MEGESTROL ACETATE 400 MG/10 ML SUSPENSION UDCUP PEG SCH ×2 (08:14→20:27)
[2020-12-22] MEDS ORDERED: MEGE40L PEG (14:21)
[2020-12-22] MEDS ORDERED: CYAN500T9 PEG (14:21)
[2020-12-22] MEDS ORDERED: ETHA100 PEG (14:22)
[2020-12-22] MEDS ORDERED: ISON300 PEG (14:24)
[2020-12-22] MEDS ORDERED: PYRA500 PEG (14:24)
[2020-12-22] MEDS ORDERED: THIA100T80 PEG (14:28)
[2020-12-22] MEDS ORDERED: RIFA300 PEG (14:29)
[2020-12-22] MEDS ORDERED: MULT-1203 PEG (14:30)
[2020-12-22] MEDS ORDERED: PYRI50 PEG (14:31)
[2020-12-22] MEDS ORDERED: MIRT30 PEG (14:32)
[2020-12-22] MEDS ORDERED: BISA10SU11 PR (14:36)
[2020-12-22] MEDS ORDERED: DOCU-275 PO (14:37)
[2020-12-22] MEDS ORDERED: CHOL100018 PEG (14:48)
[2020-12-22] MEDS ORDERED: CLON-598 PO (14:49)
[2020-12-22] MEDS ORDERED: HALO100V4 IM (14:50)
[2020-12-22] MEDS ORDERED: TRAM50TA4 PO (14:59)
[2020-12-22] MEDS ORDERED: DSSL PEG (15:01)
[2020-12-22 19:53] VITALS: BP 119/55
[2020-12-22] MEDS: MIRTAZAPINE 30 MG TABLET PO SCH (20:28)
[2020-12-22] MEDS: BISACODYL 10 MG RECTAL RECTAL SUPPOSITORY PR SCH (20:28)
[2020-12-23 04:09] VITALS: BP 94/54
[2020-12-23] MEDS: ETHAMBUTOL HCL 400 MG TABLET PEG SCH (08:26)
[2020-12-23] MEDS: CHOLECALCIFEROL (VIT D3) 1,000 UNITS [25 MCG] TABLET PEG SCH (08:26)
[2020-12-23] MEDS: RIFAMPIN 300 MG CAPSULE PO SCH (08:26)
[2020-12-23] MEDS: MEGESTROL ACETATE 400 MG/10 ML SUSPENSION UDCUP PEG SCH ×2 (08:26→20:21)
[2020-12-23] MEDS: CYANOCOBALAMIN 500 MCG TABLET PEG SCH (08:26)
[2020-12-23] MEDS: PYRIDOXINE HCL 50 MG TABLET PEG SCH (08:26)
[2020-12-23] MEDS: ISONIAZID 300 MG TABLET PEG SCH (08:26)
[2020-12-23] MEDS: PYRAZINAMIDE 500 MG TABLET PEG SCH (08:26)
[2020-12-23] MEDS: THIAMINE 100 MG TABLET PEG SCH (08:26)
[2020-12-23] MEDS: DOCUSATE SODIUM 100 MG/10 ML LIQUID UDCUP PEG SCH (08:26)
[2020-12-23] MEDS: MULTIVITAMINS WITH MINERALS, THERAPEUTIC TABLET PO SCH (08:26)
[2020-12-23] MEDS: BISACODYL 10 MG RECTAL RECTAL SUPPOSITORY PR SCH ×3 (08:27→20:21)
[2020-12-23] MEDS: TraMADol HCL 50 MG TABLET PEG PRN ×2 (08:46→20:21)
[2020-12-23 09:01] VITALS: BP 109/79
[2020-12-23] MEDS: MIRTAZAPINE 30 MG TABLET PO SCH (20:21)
[2020-12-23 20:30] VITALS: BP 106/77
[2020-12-24 04:12] VITALS: BP 96/64
== END 2020-12-24 06:44 | DRG 177 ==
LOC: 6S 00:22
PROVIDERS: ADMIT Internal Medicine; ATTEND Internal Medicine
DX: A15.0 Tuberculosis of lung (principal); E43 Unspecified severe protein-calorie malnutrition; Z68.1 Body mass index [BMI] 19.9 or less, adult; A18.01 Tuberculosis of spine; F33.2 Major depressive disorder, recurrent severe without psychotic features; D61.818 Other pancytopenia; C94.6 Myelodysplastic disease, not elsewhere classified; R62.7 Adult failure to thrive; Z88.8 Allergy status to other drugs, medicaments and biological substances; Z93.1 Gastrostomy status; D69.6 Thrombocytopenia, unspecified; F41.9 Anxiety disorder, unspecified; K59.00 Constipation, unspecified; M48.07 Spinal stenosis, lumbosacral region; M51.27 Other intervertebral disc displacement, lumbosacral region; Z20.822 Contact with and (suspected) exposure to COVID-19
CPT/HCPCS: 72100; 80173; 80307; 82607; 82746; 83036; 83735; 84100; 84443; 87015; 87081; 87206; 87426; 94640; 97110; 97162; 97530; 99285; J1631; J1644; 36415-L1; 36415-TC; 71045-TC; 80061-TC; 81003-TC